=== PATIENT | male | born 1965 | race African-American/Black ===

== ENCOUNTER 2016-09-03 11:02 | Emergency (ER) | payer OTHER ==
[~2016-09-03] VITALS: Ht 193 cm; Wt 114.0 kg
[2016-09-03 11:09] VITALS: TEMP 36.5; Ht 193 cm; Wt 114.0 kg
[2016-09-03] MEDS ORDERED: PRLSR20 PO (11:19)
[2016-09-03] MEDS ORDERED: RIZA10TA18 PO (11:19)
[2016-09-03] MEDS ORDERED: ONDANSETRON INJ 2 MG/ML 2 ML VIAL IV STA (11:42)
[2016-09-03] MEDS ORDERED: DIAZEPAM INJ 5 MG/ML 2 ML CARP IV STA (11:42)
[2016-09-03] MEDS ORDERED: MECLIZINE HCL 25 MG TAB PO STA (11:42)
[2016-09-03] MEDS ORDERED: SODIUM CHLORIDE 0.9% 1000ML 1,000 ML IV STA (11:42)
--- NOTE | 2016-09-03 11:49 | EMERGENCY ROOM VISIT NOTE ---
History Report prepared by William: Susan Macdonald Under the Supervision of: Dr. Kai Rachel M.D. First contact with patient: 11:35 Chief Complaint: DIZZY Stated Complaint: DIZZY Nursing Triage Summary: Pt was at work this AM and around 0930 and became dizzy. Pt stated that he had nausea and felt as if he was going to throw up . Pt ate pizza for breakfast and drank a lot of coffee. Pt stated he has had little water over the last couple of days. Pt stated that he did have diarrhea last evening but attributed it to equ[place] food. Pt is dizzy with movement. History of Present Illness The patient is a 50 year old male who presents to the Emergency Room with complaints of persistent dizziness that began around 0930 this morning. The patient states that movement worsens his symptoms. He states that he had just gotten back to his cell block from breakfast when he started feeling nauseated. The patient states that he felt that his equilibrium was off and then became diaphoretic. He states that he has a history of migraines, but denies his symptoms feeling similar to his migraines. The patient states that he is on Prilosec for acid reflux and Maxalt for his migraines. He denies any abdominal pain today. Source of History: patient Onset: 09 this morning Position: other (global) Quality: other (dizziness ) Timing: other (persistent) Associated Symptoms: + diaphoresis, + nausea, No abdominal pain Review of Systems See HPI for pertinent positives & negatives. A total of 10 systems reviewed and were otherwise negative. Past Medical & Surgical Medical Problems: (1) Acid reflux (2) Hypertension (3) Migraine (4) Pneumonia Surgical Problems: (1) History of appendectomy Family History Cancer Diabetes mellitus Hypertension Lung disease Social History Smoking Status: Former Smoker Alcohol Use: none Marital Status: Occupation Status: employed Current/Historical Medications Scheduled Omeprazole (Prilosec), 20 MG PO DAILY Scheduled PRN Meclizine Hcl (Meclizine Hcl), 1 TAB PO TID PRN for Dizziness or Vertigo Rizatriptan Benzoate (Maxalt), 10 MG PO for Migraine Allergies Coded Allergies: No Known Allergies (Unverified , 09/03/16) Physical Exam Vital Signs Date Time Temp Pulse Resp B/P Pulse Ox O2 Delivery O2 Flow Rate FiO2 09/03/16 13:16 57 18 126/84 98 Room Air 09/03/16 12:31 69 09/03/16 12:17 65 16 139/85 65 121/79 72 119/89 09/03/16 12:13 96 Room Air 09/03/16 12:13 95 Room Air 09/03/16 11:09 36.5 70 16 141/99 95 Room Air Physical Exam GENERAL: Patient is a healthy-appearing well-nourished HEAD: Normocephalic atraumatic EYES: Ocular movements intact pupils equal and react to light OROPHARYNX mucous membranes are moist no exudates present no erythema or edema present NECK: Supple no nuchal rigidity CHEST: Good equal expansion LUNGS: Clear and equal to auscultation CARDIAC: Normal S1 and S2 ABDOMEN: Soft nontender no guarding BACK: No CVA tenderness EXTREMITIES: No pain upon palpation normal muscle strength in all groups no clubbing cyanosis or edema NEURO: Patient is following commands is answering questions appropriately. Alert and oriented x3 Cranial Nerves 2-12 grossly intact Medical Decision & Procedures ER Provider Diagnostic Interpretation: CT results as stated below per my review and radiologist interpretation: CT SCAN OF THE BRAIN WITHOUT IV CONTRAST CLINICAL HISTORY: Dizziness. COMPARISON STUDY: No priors TECHNIQUE: Unenhanced axial CT scan of the brain is performed from the vertex to the skull base. Automated dose control exposure was utilized. CT DOSE: 614.27 mGy.cm FINDINGS: Brain parenchyma: The brain parenchyma is normal in appearance. There is no hemorrhage, mass effect, or evidence of acute territorial ischemia by CT criteria. Oliva-white matter is preserved. No extra-axial fluid collection is seen. Ventricles, sulci, cisterns: Normal in configuration. Intracranial vasculature: The visualized intracranial vasculature at the skull base is normal in appearance. Calvarium: Unremarkable. Sinuses and mastoids: Trace mucosal thickening is seen within the right maxillary antrum and ethmoid sinuses. The remaining visualized paranasal sinuses are clear. The mastoid air cells are well pneumatized. Orbits: The bony orbits are grossly intact. IMPRESSION: No acute intracranial abnormality. Electronically signed by: Enoc Hair M.D. 09/03/2016 12:59 PM Dictated Date/Time: 09/03/2016 12:52 PM Laboratory Results 09/03/16 12:07 Red Blood Count 5.39, Mean Corpuscular Volume 79.4, Mean Corpuscular Hemoglobin 26.7, Mean Corpuscular Hemoglobin Concent 33.6, Mean Platelet Volume 10.0, Neutrophils (%) (Auto) 77.3, Lymphocytes (%) (Auto) 16.2, Monocytes (%) (Auto) 5.0, Eosinophils (%) (Auto) 1.2, Basophils (%) (Auto) 0.2, Neutrophils # (Auto) 8.91, Lymphocytes # (Auto) 1.87, Monocytes # (Auto) 0.58, Eosinophils # (Auto) 0.14, Basophils # (Auto) 0.02 09/03/16 12:07 Test 09/03/16 12:07 09/03/16 12:33 09/03/16 13:07 White Blood Count 11.53 K/uL (4.8-10.8) Red Blood Count 5.39 M/uL (4.7-6.1) Hemoglobin 14.4 g/dL (14.0-18.0) Hematocrit 42.8 % (42-52) Mean Corpuscular Volume 79.4 fL (80-100) Mean Corpuscular Hemoglobin 26.7 pg (25-34) Mean Corpuscular Hemoglobin Concent 33.6 g/dl (32-36) Platelet Count 224 K/uL (130-400) Mean Platelet Volume 10.0 fL (7.4-10.4) Neutrophils (%) (Auto) 77.3 % Lymphocytes (%) (Auto) 16.2 % Monocytes (%) (Auto) 5.0 % Eosinophils (%) (Auto) 1.2 % Basophils (%) (Auto) 0.2 % Neutrophils # (Auto) 8.91 K/uL (1.4-6.5) Lymphocytes # (Auto) 1.87 K/uL (1.2-3.4) Monocytes # (Auto) 0.58 K/uL (0.11-0.59) Eosinophils # (Auto) 0.14 K/uL (0-0.5) Basophils # (Auto) 0.02 K/uL (0-0.2) RDW Standard Deviation 36.4 fL (36.4-46.3) RDW Coefficient of Variation 12.7 % (11.5-14.5) Immature Granulocyte % (Auto) 0.1 % Immature Granulocyte # (Auto) 0.01 K/uL (0.00-0.02) Anion Gap 7.0 mmol/L (3-11) Est Creatinine Clear Calc Drug Dose 104.0 ml/min Estimated GFR () 82.4 Estimated GFR (Non- 71.1 BUN/Creatinine Ratio 12.1 (10-20) Calcium Level 9.1 mg/dl (8.5-10.1) Total Bilirubin 0.5 mg/dl (0.2-1) Direct Bilirubin 0.1 mg/dl (0-0.2) Aspartate Amino Transf (AST/SGOT) 18 U/L (15-37) Alanine Aminotransferase (ALT/SGPT) 24 U/L (12-78) Alkaline Phosphatase 119 U/L (45-117) Total Protein 8.1 gm/dl (6.4-8.2) Albumin 3.9 gm/dl (3.4-5.0) Thyroid Stimulating Hormone (TSH) 0.398 uIu/ml (0.300-4.500) Bedside Glucose 146 mg/dl (70-99) Urine Color YELLOW Urine Appearance CLEAR (CLEAR) Urine pH 7.0 (4.5-7.5) Urine Specific [place] 1.024 (1.000-1.030) Urine Protein NEG (NEG) Urine Glucose (UA) NEG (NEG) Urine Ketones NEG (NEG) Urine Occult Blood NEG (NEG) Urine Nitrite NEG (NEG) Urine Bilirubin NEG (NEG) Urine Urobilinogen NEG (NEG) Urine Leukocyte Esterase NEG (NEG) Labs reviewed by ED physician. Medications Administered Medications (Trade) Dose Ordered Sig/Mason Route Start Time Stop Time Status Last Admin Dose Admin Meclizine HCl (Antivert Tab) 25 mg NOW STAT PO 09/03/16 11:42 09/03/16 11:45 DC 09/03/16 12:27 25 MG Diazepam (Valium Inj) 5 mg NOW STAT IV 09/03/16 11:42 09/03/16 11:44 DC 09/03/16 12:27 5 MG Ondansetron HCl 4 mg 4 mg NOW STAT IV 09/03/16 11:42 09/03/16 11:45 DC 09/03/16 12:27 4 MG Sodium Chloride (Nss 1000ml) 1,000 ml @ 999 mls/hr Q1H1M STAT IV 09/03/16 11:42 09/03/16 12:42 DC 09/03/16 12:24 999 MLS/HR ECG Indication: other (dizziness) Rate (beats per minute): 57 Rhythm: sinus bradycardia Findings: T-wave inversion (Inferior), no acute ischemic change, no ectopy ED Course 1138: Past medical records reviewed. The patient was evaluated in room B11B. A complete history and physical examination was performed. 1142: Ordered Sodium Chloride 1000 ml @ 999 mls/hr IV, Zofran Inj 4 mg IV, Valium Inj 5 mg IV, Antivert Tab 25 mg PO. 1254: I reevaluated the patient and he is resting comfortably. 1331: I reevaluated the patient and he is resting comfortably. I discussed the exam findings with him and I discussed the treatment plan. He verbalized complete understanding and agreement. He is ready to go home. Medical Decision Differential diagnosis: Etiologies such as benign positional vertigo, dehydration, hypovolemia, anemia, tumor, infection, hypoglycemia, electrolyte abnormalities, cardiac sources, intracerebral event, toxicologic, neurologic, as well as others were entertained. This is a 50-year-old male who presents emergency department with dizziness that the teeth with time. The patient was given Antivert as well as Valium in the emergency department. Repeat examination revealed much improvement the patient's symptoms. Patient has a normal CAT scan of the head. He has a normal CBC as well as a normal renal profile. I believe based on these findings at the patient can be safely discharged home. He was given meclizine for the dizziness. He will follow-up with ear nose and throat. Patient was in agreement with the treatment plan. Impression Primary Impression: Vertigo Scribe Attestation The scribe's documentation has been prepared under my direction and personally reviewed by me in its entirety. I confirm that the note above accurately reflects all work, treatment, procedures, and medical decision making performed by me. Departure Information Dispostion Home / Self-Care Prescriptions Meclizine Hcl (MECLIZINE HCL) 25 Mg Tab 1 TAB PO TID Y for Dizziness or Vertigo for 10 Days, #30 TAB Prov: Kai Rachel MD 09/03/16 Referrals No Doctor, Assigned (PCP) Rupesh Murphy D.O. Forms HOME CARE DOCUMENTATION FORM, IMPORTANT VISIT INFORMATION, School Instructions, Work Instructions Patient Instructions ED [facility] Vertigo, [facility] Additional Instructions Follow up with Dr Murphy's office You have been examined and treated today on an emergency basis only. This is not a substitute for, or an effort to provide, complete comprehensive medical care. It is impossible to recognize and treat all injuries or illnesses in a single emergency department visit. It is therefore important that you follow up closely with your PCP. Call as soon as possible for an appointment. Thank you for your time and consideration. I look forward to speaking with you again soon. Please don't hesitate to call us if you have any questions.
[2016-09-03 12:13] VITALS: O2SAT 95
[2016-09-03 12:23] LABS: BASO % 0.2 %; BASO ABS # 0.02 K/uL (0-0.2); COMPLETE YES; EOS % 1.2 %; HEMATOCRIT 42.8 % (42-52); IG% 0.1 %; LYMPH % 16.2 %; LYMPH ABS # 1.87 K/uL (1.2-3.4); MEAN CELL VOLUME 79.4 fL (80-100); MEAN CORPUSCULAR HEMOGLOBIN 26.7 pg (25-34); MEAN CORPUSCULAR HGB CONC 33.6 g/dl (32-36); NEUT % 77.3 %; PLATELET COUNT 224 K/uL (130-400); RED BLOOD COUNT 5.39 M/uL (4.7-6.1); WHITE BLOOD COUNT 11.53 K/uL (4.8-10.8)
[2016-09-03 12:50] LABS: BUN/CREATININE RATIO 12.1 (10-20); CALCIUM 9.1 mg/dl (8.5-10.1); CREATININE 1.2 mg/dl (0.60-1.40); POTASSIUM 4.1 mmol/L (3.5-5.1)
[2016-09-03 13:00] LABS: THYROID STIMULATING HORMONE 0.398 uIu/ml (0.300-4.500)
--- NOTE | 2016-09-03 13:00 | DIAGNOSTIC IMAGING REPORT ---
CT SCAN OF THE BRAIN WITHOUT IV CONTRAST CLINICAL HISTORY: Dizziness. COMPARISON STUDY: No priors TECHNIQUE: Unenhanced axial CT scan of the brain is performed from the vertex to the skull base. Automated dose control exposure was utilized. CT DOSE: 614.27 mGy.cm FINDINGS: Brain parenchyma: The brain parenchyma is normal in appearance. There is no hemorrhage, mass effect, or evidence of acute territorial ischemia by CT criteria. Oliva-white matter is preserved. No extra-axial fluid collection is seen. Ventricles, sulci, cisterns: Normal in configuration. Intracranial vasculature: The visualized intracranial vasculature at the skull base is normal in appearance. Calvarium: Unremarkable. Sinuses and mastoids: Trace mucosal thickening is seen within the right maxillary antrum and ethmoid sinuses. The remaining visualized paranasal sinuses are clear. The mastoid air cells are well pneumatized. Orbits: The bony orbits are grossly intact. IMPRESSION: No acute intracranial abnormality. Electronically signed by: Enoc Hair M.D. 09/03/2016 12:59 PM Dictated Date/Time: 09/03/2016 12:52 PM
[2016-09-03 13:16] VITALS: BP 126/84; PULSE 57; O2SAT 98
[2016-09-03] MEDS ORDERED: MECL1TAB42 PO (13:35)
[2016-09-03 14:16] LABS: URINE APPEARANCE CLEAR (CLEAR); URINE BILIRUBIN NEG (NEG); URINE COLOR YELLOW; URINE NITRITE NEG (NEG); URINE SPECIFIC GRAVITY 1.024 (1.000-1.030); UROBILINOGEN NEG (NEG)
[2016-09-03 14:24] LABS: MANUAL MICROSCOPIC REQUIRED? NO; REVIEW REQ? NO
== END 2016-09-03 13:49 | disposition home or self-care (01) ==
LOC: C.EDB 11:04
DX: R42 Dizziness and giddiness (principal); K21.9 Gastro-esophageal reflux disease without esophagitis; I10 Essential (primary) hypertension; Z83.3 Family history of diabetes mellitus; Z82.49 Family history of ischemic heart disease and other diseases of the circulatory system; Z87.891 Personal history of nicotine dependence